=== PATIENT | female | born 2000 | race American Indian/Alaskan Native ===

== ENCOUNTER 2020-02-25 11:54 | Emergency (ER) | payer SELFPAY ==
[2020-02-25 12:21] VITALS: BP 126/83
[2020-02-25] MEDS ORDERED: ALUM-MAG HYDROXIDE-SIMETHICONE 200-200-20MG/5ML ORAL LIQD 30 ML PO ONE (12:42)
[2020-02-25] MEDS ORDERED: HYOSCYAMINE SUBL 0.125 MG TAB SL ONE (12:42)
--- NOTE | 2020-02-25 13:23 | XRay Report ---
CHEST 2 VIEWS INDICATION / CLINICAL INFORMATION: Chest pain and upper back pain. COMPARISON: None available. FINDINGS: SUPPORT DEVICES: None. HEART / MEDIASTINUM: No significant abnormality. LUNGS / PLEURA: No significant pulmonary or pleural abnormality. No pneumothorax. ADDITIONAL FINDINGS: No significant additional findings. IMPRESSION: 1. No acute abnormality of the chest. Signer Name: Carroll Curtis MD Signed: 02/25/2020 1:18 PM Workstation Name: [id number]
--- NOTE | 2020-02-25 13:57 | Emergency Department Report ---
ED General Adult HPI - General Chief complaint: Dyspnea/Respdistress Stated complaint: PANIC ATTACH/HOT/CP/BACK PAIN Time Seen by Provider: 02/25/20 12:31 Source: patient Mode of arrival: Ambulatory Limitations: No Limitations - History of Present Illness Initial comments: Patient is a 19-year-old female presents emergency room with complaints of chest pain that began yesterday. She states that felt like a tightness. She states that she began to feel anxious and was hyperventilating and believes she had a panic attack. She states that she has a history of anxiety and uses buspirone. She states that she also has a history of acid reflux and believes her chest pain is due to the reflux. She states that she has been taking pantoprazole for 2 to 3 months without much relief from the acid reflux. She has not seen a GI doctor or primary care doctor. She states she also has a history of asthma and GERD. She denies any nausea, vomiting, diarrhea, fever, cough, leg swelling. She denies any recent travel, recent surgery, sick contacts, hormone use. She states that she has an appointment with a mobile application architect on March 26, 2020. - Related Data Previous Rx's Medication Instructions Recorded Last Taken Type Omeprazole 20 mg PO QAM #60 capsule. 02/25/20 Unknown Rx Allergies Allergy/AdvReac Type Severity Reaction Status Date / Time No Known Allergies Allergy Verified 02/25/20 12:03 ED Review of Systems ROS: Stated complaint: PANIC ATTACH/HOT/CP/BACK PAIN Other details as noted in HPI Comment: All other systems reviewed and negative ED Past Medical Hx - Past Medical History Previous Medical History?: Yes Hx Asthma: Yes - Surgical History Past Surgical History?: No - Social History Smoking Status: Never Smoker Substance Use Type: None - Medications Home Medications: Home Medications Medication Instructions Recorded Confirmed Last Taken Type Omeprazole 20 mg PO QAM #60 capsule. 02/25/20 Unknown Rx ED Physical Exam - General Limitations: No Limitations General appearance: alert, in no apparent distress - Head Head exam: Present: atraumatic, normocephalic - Eye Eye exam: Present: normal appearance - ENT ENT exam: Present: mucous membranes moist - Respiratory Respiratory exam: Present: normal lung sounds bilaterally. Absent: respiratory distress, wheezes, rales, rhonchi, stridor, chest wall tenderness, accessory muscle use, decreased breath sounds, prolonged expiratory - Cardiovascular Cardiovascular Exam: Present: regular rate, normal rhythm, normal heart sounds. Absent: systolic murmur, diastolic murmur, rubs, gallop - Extremities Exam Extremities exam: Absent: pedal edema - Neurological Exam Neurological exam: Present: alert, oriented X3 - Psychiatric Psychiatric exam: Present: normal affect, normal mood - Skin Skin exam: Present: warm, dry, intact ED Course Vital Signs 02/25/20 12:03 Temperature 98.2 F Pulse Rate 98 H Respiratory 16 Rate Blood Pressure 126/83 [Left] O2 Sat by Pulse 99 Oximetry ED Medical Decision Making - EKG Data EKG shows normal: sinus rhythm, axis, intervals, QRS complexes, ST-T waves Rate: normal - Radiology Data Radiology results: report reviewed CHEST 2 VIEWS INDICATION / CLINICAL INFORMATION: Chest pain and upper back pain. COMPARISON: None available. FINDINGS: SUPPORT DEVICES: None. HEART / MEDIASTINUM: No significant abnormality. LUNGS / PLEURA: No significant pulmonary or pleural abnormality. No pneumothorax. ADDITIONAL FINDINGS: No significant additional findings. IMPRESSION: 1. No acute abnormality of the chest. Signer Name: Carroll Curtis MD Signed: 02/25/2020 1:18 PM Workstation Name: [id number] Transcribed By: [place] Dictated By: Carroll Curtis MD Electronically Authenticated By: Carroll Curtis MD Signed Date/Time: 02/25/201317 DD/ 16 TD/TT: - Medical Decision Making Patient is a 19-year-old female presents emergency room with complaints of chest pain that began yesterday. She states that felt like a tightness. She states that she began to feel anxious and was hyperventilating and believes she had a panic attack. She states that she has a history of anxiety and uses buspirone. She states that she also has a history of acid reflux and believes her chest pain is due to the reflux. She states that she has been taking pantoprazole for 2 to 3 months without much relief from the acid reflux. She has not seen a GI doctor or primary care doctor. She states she also has a history of asthma and GERD. She denies any nausea, vomiting, diarrhea, fever, cough, leg swelling. She denies any recent travel, recent surgery, sick contacts, hormone use. She states that she has an appointment with a mobile application architect on March 26, 2020. Vitals are normal. EKG within normal limits. Chest x-ray with no acute process. Patient given Levsin and Maalox and symptoms improved. PERC criteria negative for PE. pt does not have any cardiac risk factors, unlikely to be cardiac etiology. Most likely secondary to anxiety and GERD. Patient will be referred to outpatient cardiology and GI. Patient given prescription for omeprazole. advised pt Please take medication as prescribed. Please follow-up with a primary care doctor. Please follow-up with your mobile application architect. Please follow-up with a GI doctor. Increase your water intake. Please follow the diet for acid reflux. Return to the emergency room for any new or worsening symptoms. - Differential Diagnosis anxiety, GERD, PUD, PTX, HCM, arrhythmia, PVC Critical care attestation.: If time is entered above; I have spent that time in minutes in the direct care of this critically ill patient, excluding procedure time. ED Disposition Clinical Impression: SOB (shortness of breath), Anxiety Chest pain Qualifiers: Chest pain type: unspecified Qualified Code(s): R07.9 - Chest pain, unspecified GERD (gastroesophageal reflux disease) Qualifiers: Esophagitis presence: without esophagitis Qualified Code(s): K21.9 - Gastro- esophageal reflux disease without esophagitis Disposition: - TO HOME OR SELFCARE Is pt being admited?: No Does the pt Need Aspirin: No Condition: Stable Instructions: Chest Pain (ED), Gastroesophageal Reflux in Children (ED), Diet for Ulcers and Gastritis (ED), Anxiety (ED) Additional Instructions: Please take medication as prescribed. Please follow-up with a primary care doctor. Please follow-up with your mobile application architect. Please follow-up with a GI doctor. Increase your water intake. Please follow the diet for acid reflux. Return to the emergency room for any new or worsening symptoms. Prescriptions: Omeprazole 20 mg PO QAM #60 capsule. Referrals: ELIA MIRANDA MD [Staff Physician] - 3-[address] [facility] [place] [Outside] - 3-5 Days [facility] [Outside] - 3-5 Days [facility] [Provider Group] - 3-5 Days [facility] [Provider Group] - 3-5 Days KAROLINA JOYA MD [Staff Physician] - 3-5 Days Time of Disposition: 13:56
== END 2020-02-25 14:25 | disposition home or self-care (01) ==
LOC: ED 11:54
DX: R06.02 Shortness of breath (principal); R07.89 Other chest pain; F41.9 Anxiety disorder, unspecified; K21.9 Gastro-esophageal reflux disease without esophagitis; J45.909 Unspecified asthma, uncomplicated; Z79.899 Other long term (current) drug therapy
CPT/HCPCS: 71046; 93005; 93010